=== PATIENT | male | born 1990 | race Two or more races ===

== ENCOUNTER 2023-01-15 14:25 | Emergency (ER) | payer OTHER ==
[2023-01-15 14:30] VITALS: BP 105/70; PULSE 67; RESP 18; TEMP 98.3; BMI 23.9
== END 2023-01-15 15:00 | disposition home or self-care (01) ==
LOC: JERFT 14:25
DX: Z48.02 Encounter for removal of sutures (principal)
CPT/HCPCS: 99281-25

== ENCOUNTER 2024-01-18 22:34 | Emergency (ER) | payer OTHER ==
[2024-01-18 22:40] VITALS: BP 129/81; PULSE 100; RESP 20; TEMP 98.5; BMI 24.7
[2024-01-18] MEDS ORDERED: DIPHTH,PERTUSS(ACELL),TET 0.5 ML DISP.SYRIN IM ONE (23:19)
[2024-01-18] MEDS: DIPHTH,PERTUSS(ACELL),TET 0.5 ML DISP.SYRIN IM ONE (23:28)
[2024-01-19] MEDS ORDERED: CEPHALEXIN MONOHYDRATE 500 MG CAPSULE (UD) ONE (00:32)
[2024-01-19] MEDS: CEPHALEXIN MONOHYDRATE 500 MG CAPSULE (UD) PO ONE (00:34)
== END 2024-01-19 00:34 | disposition home or self-care (01) ==
LOC: JER 22:34
PROC: 0HQ1XZZ Repair Face Skin, External Approach (ICD-10-PCS; principal; 2024-01-18)
PROC: 3E0234Z Introduction of Serum, Toxoid and Vaccine into Muscle, Percutaneous Approach (ICD-10-PCS; 2024-01-18)
DX: S01.81XA Laceration without foreign body of other part of head, initial encounter (principal); D16.4 Benign neoplasm of bones of skull and face; W01.198A Fall on same level from slipping, tripping and stumbling with subsequent striking against other object, initial encounter; Z23 Encounter for immunization
CPT/HCPCS: 12011-25; 70450-TC; 70486-TC; 72125-TC; 82962; 90471; 90715; 93005; 93010; 99285-25